=== PATIENT | female | born 1950 | race Caucasian/White ===

== ENCOUNTER 2019-08-30 10:31 | Outpatient (CLI) | payer OTHER ==
[2019-08-30 11:46] LABS: ALBUMIN 3.6 g/dL (3.4-5.0); ANION GAP 6 mmol/L (5-15); CALCIUM 9.2 mg/dL (8.5-10.1); CHLORIDE 103 mmol/L (98-107)
[2019-08-30 11:47] LABS: BASOPHILS # (AUTO) 0.02 x10^3/uL (0-0.1); BASOPHILS % (AUTO) 1 % (0-1); EOSINOPHILS % (AUTO) 2 % (1-7); LYMPHOCYTES % (AUTO) 27 % (22-44); MD NO; MEAN CORPUSCULAR HEMOGLOBIN 28.5 pg (27.0-34.8); MEAN CORPUSCULAR VOLUME 89.2 fL (80-100); MEAN PLATELET VOLUME 8.2 fL (7.4-10.4); MONOCYTES # (AUTO) 0.42 x10^3/uL (0.2-0.8); MONOCYTES % (AUTO) 9 % (2-9); NEUTROPHILS # (AUTO) 3.07 x10^3/uL (1.8-6.8); NEUTROPHILS % (AUTO) 62 % (42-75); PLATELET COUNT 370 x10^3/uL (130-400); RED BLOOD COUNT 4.74 x10^6/uL (3.82-5.3); RED CELL DISTRIBUTION WIDTH 15.5 % (9.6-15.2)
[2019-08-30 11:49] LABS: ALANINE AMINOTRANSFERASE 34 U/L (12-78); ALKALINE PHOSPHATASE 108 U/L (45-117); BILIRUBIN,TOTAL 0.6 mg/dL (0.2-1.0); CREATININE 0.78 mg/dL (0.55-1.02); TOTAL PROTEIN 7.8 g/dL (6.4-8.2)
[2019-08-30] MEDS ORDERED: [UNRECOGNIZED DRUG - OTHER] (16:10)
[2019-08-30] MEDS ORDERED: LOSA25TA25 PO (16:10)
[2019-08-30] MEDS ORDERED: PANT20TA2 PO (16:10)
== END 2019-08-30 23:59 | disposition home or self-care (01) ==
LOC: STAR 10:31
PROVIDERS: ATTEND Obstetrics & Gynecology Female Pelvic Medicine and Reconstructive Surgery
DX: Z01.818 Encounter for other preprocedural examination (principal); N39.46 Mixed incontinence; N81.10 Cystocele, unspecified; R32 Unspecified urinary incontinence
CPT/HCPCS: 36415; 80053; 85025; 93005

== ENCOUNTER 2019-09-16 10:56 | Day surgery (SDC) | payer OTHER ==
[~2019-09-16] VITALS: Ht 170.2 cm; Wt 115.0 kg
[~2019-09-16 10:56] MED LIST: LOSA25TA25 PO; PANT20TA2 PO; [UNRECOGNIZED DRUG - OTHER]
[2019-09-16] MEDS ORDERED: LACTATED RINGERS 1,000 ML IV SCH ×2 (11:25→14:53)
[2019-09-16] MEDS ORDERED: MIDAZOLAM 1 MG/ML, 2ML ONE (11:29)
[2019-09-16] MEDS ORDERED: FENTANYL PF 250 MCG/5ML ONE (11:29)
[2019-09-16] MEDS ORDERED: GABAPENTIN 300 MG CAPSULE PO ONE (11:30)
[2019-09-16] MEDS ORDERED: ACETAMINOPHEN 500 MG TABLET PO ONE (11:30)
[2019-09-16] MEDS ORDERED: SCOPOLAMINE PATCH, 1.5MG PATCH.TD72 TD ONE (11:30)
[2019-09-16] MEDS ORDERED: BUPIVACAINE/PF-EPI 0.25% 1:200K ONE ×2 (12:54→13:23)
[2019-09-16] MEDS ORDERED: VANCOMYCIN 500 MG ONE (12:54)
[2019-09-16] MEDS ORDERED: INDIGO CARMINE 0.8%, 5ML ONE (12:54)
[2019-09-16] MEDS ORDERED: PROPOFOL 10 MG/ML, 20ML ONE (13:04)
[2019-09-16] MEDS ORDERED: CEFAZOLIN 1,000 MG ONE (13:04)
[2019-09-16] MEDS ORDERED: ONDANSETRON 2MG/ML, 2ML ONE (13:04)
[2019-09-16] MEDS ORDERED: ROCURONIUM 10MG/ML,5ML ONE (13:04)
[2019-09-16] MEDS ORDERED: SUCCINYLCHOLINE 20 MG/ML, 10ML ONE (13:04)
[2019-09-16] MEDS ORDERED: MEPERIDINE/PF 25MG/0.5ML IVPush PRN (13:30)
[2019-09-16] MEDS ORDERED: LABETALOL 5MG/ML, 20ML IV PRN (13:30)
[2019-09-16] MEDS ORDERED: FENTANYL PF 100 MCG/2ML IV PRN (13:30)
[2019-09-16] MEDS ORDERED: PROMETHAZINE 25 MG/ML, 1ML IV PRN (13:30)
[2019-09-16] MEDS ORDERED: OXYcodone 5 MG/5 ML ORAL.SOL UDC PO PRN (13:30)
[2019-09-16] MEDS ORDERED: METOCLOPRAMIDE 5 MG/ML, 2ML IV PRN (13:30)
[2019-09-16] MEDS ORDERED: HYDROmorphone 1 MG/ML, 1ML INJ IV PRN (13:30)
[2019-09-16] MEDS ORDERED: DIAZEPAM 5 MG/ML, 2ML IV PRN ×2 (13:30)
[2019-09-16] MEDS ORDERED: ONDANSETRON 2MG/ML, 2ML IVPush PRN ×2 (13:30→15:00)
[2019-09-16] MEDS ORDERED: hydrALAzine 20 MG/ML, 1ML IV PRN (13:30)
[2019-09-16] MEDS ORDERED: ALBUTEROL SULFATE 2.5 MG/3 ML NPPB PRN (13:30)
[2019-09-16] MEDS ORDERED: KETOROLAC 30 MG/1 ML IV PRN (13:30)
[2019-09-16] MEDS ORDERED: FENTANYL PF 100 MCG/2ML ONE (14:23)
[2019-09-16] MEDS ORDERED: OXYcodone 5 MG/5 ML ORAL.SOL UDC ONE (14:24)
[2019-09-16] MEDS ORDERED: HYDROcodone/APAP 5/325 TABLET PO PRN (15:00)
[2019-09-16] MEDS ORDERED: PROMETHAZINE 25 MG SUPP PR ONE (15:00)
== END 2019-09-16 17:30 | disposition home or self-care (01) ==
LOC: OUT 10:56
PROVIDERS: ATTEND Obstetrics & Gynecology Female Pelvic Medicine and Reconstructive Surgery
DX: N81.10 Cystocele, unspecified (principal); N39.3 Stress incontinence (female) (male); R39.14 Feeling of incomplete bladder emptying; R39.11 Hesitancy of micturition; E66.01 Morbid (severe) obesity due to excess calories; I10 Essential (primary) hypertension; G47.33 Obstructive sleep apnea (adult) (pediatric); M19.90 Unspecified osteoarthritis, unspecified site; Z68.41 Body mass index [BMI] 40.0-44.9, adult; Z79.1 Long term (current) use of non-steroidal anti-inflammatories (NSAID); Z79.899 Other long term (current) drug therapy; Z90.49 Acquired absence of other specified parts of digestive tract
CPT/HCPCS: 57240; 57288; C1771; J0330; J0690; J2250; J2405; J2704; J3010; J3370; J7120